=== PATIENT | male | born 1980 | race African-American/Black ===

== ENCOUNTER 2018-02-01 17:03 | Emergency (ER) | payer OTHER ==
[~2018-02-01] VITALS: Ht 175.3 cm; Wt 77.4 kg
[2018-02-01] MEDS ORDERED: FLEXERIL10 MG PO (18:02)
[2018-02-01] MEDS ORDERED: NAPROSYN500 MG PO (18:02)
[2018-02-01 18:23] VITALS: BP 140/90
== END 2018-02-01 18:23 | disposition home or self-care (01) ==
LOC: EME 17:03
DX: S16.1XXA Strain of muscle, fascia and tendon at neck level, initial encounter (principal); M54.5 Low back pain; M54.16 Radiculopathy, lumbar region; V49.50XA Passenger injured in collision with unspecified motor vehicles in traffic accident, initial encounter; Y92.410 Unspecified street and highway as the place of occurrence of the external cause
CPT/HCPCS: 72040; 72100; 99281; 99283

== ENCOUNTER 2018-04-07 18:21 | Emergency (ER) | payer OTHER ==
[~2018-04-07] VITALS: Ht 177.8 cm; Wt 73.5 kg
[~2018-04-07 18:21] MED LIST: FLEXERIL10 MG PO; NAPROSYN500 MG PO
[2018-04-07] MEDS ORDERED: KEFLEX500 MG PO (20:45)
[2018-04-07 21:23] VITALS: BP 131/96
== END 2018-04-07 21:45 | disposition home or self-care (01) ==
LOC: EME 18:21
PROC: 3E0234Z Introduction of Serum, Toxoid and Vaccine into Muscle, Percutaneous Approach (ICD-10-PCS; principal; 2018-04-07)
PROC: 0HQGXZZ Repair Left Hand Skin, External Approach (ICD-10-PCS; principal; 2018-04-07)
DX: S61.215A Laceration without foreign body of left ring finger without damage to nail, initial encounter (principal); W29.0XXA Contact with powered kitchen appliance, initial encounter; Y99.0 Civilian activity done for income or pay; Z23 Encounter for immunization
CPT/HCPCS: 73140; 99281; 99283; J0696